=== PATIENT | male | born 1970 | race Caucasian/White ===

== ENCOUNTER 2016-08-01 02:28 | Observation (INO) | payer SELFPAY ==
--- NOTE | ~2016-08-01 | DS ---
Discharge Summary [facility] [address] [place]. [address] NAME: LEVAR SEAY EVER : 74 STATUS : DIS Lauren PAT#: [id number] AGE: 45 ADM/REG DATE : 08/01/16 MR#: [id number] REPORT SERV DATE: 08/04/16 DICTATED BY: TONY RAMEY DATE: 08/03/16 REPORT STATUS : Draft TRANSCRIBED BY: MODL DATE: 08/03/16 ADMISSION DATE: 08/01/2016 DISCHARGE DATE: 08/03/2016 DISCHARGE DIAGNOSES: 1. Acute Clostridium difficile colitis. 2. Tobacco abuse. CONSULTANTS DURING THIS HOSPITALIZATION: None. INVASIVE PROCEDURES DONE DURING THIS HOSPITALIZATION: None. IMAGING DONE DURING THIS HOSPITALIZATION: CT of the abdomen and pelvis with IV contrast showing diffuse colitis consistent with history of C difficile. BRIEF HISTORY OF PRESENT ILLNESS: The patient is a 45-year-old white male, presented to [facility] with significant diarrhea and abdominal pain with an elevated white count. So, he was admitted. For detailed history and physical exam, please see note dictated by Dr. Christian Márqeuz on 08/01/2016. HOSPITAL COURSE: After being admitted to the hospital, this patient was given IV fluids. A CT of the abdomen and pelvis was obtained. We did get records from [facility], where he had had significant diarrhea and his stool studies were positive for C difficile. At that time, immediately Levaquin was discontinued. We continued the Flagyl and he was given oral vancomycin within 24-48 hours of starting the oral vancomycin. This patient's symptoms abated. His diarrhea significantly improved. His white count has come down to normal levels and he feels well enough that he wants to go home and recover in the home setting. DISCHARGE DISPOSITION: Home. DISCHARGE ACTIVITY: As tolerated. DISCHARGE DIET: GI soft diet. DISCHARGE MEDICATIONS: Vancomycin 125 mg four times daily to finish a total of 14-day course. This patient was also counseled on smoking cessation during this hospitalization. DISCHARGE FOLLOWUP: The patient was advised to follow up with the primary care physician. More than 30 minutes spent planning this patient's discharge, reconciling medications, writing prescriptions, discussing hospital care, and followup with the patient and documenting this discharge. SV/MODL Discharge Summary [facility] [address] [place]. [address] NAME: LEVAR SEAY : 74 STATUS : DIS Lauren PAT#: [id number] AGE: 45 ADM/REG DATE : 08/01/16 MR#: [id number] REPORT SERV DATE: 08/04/16 DICTATED BY: TONY RAMEY DATE: 08/03/16 REPORT STATUS : Draft TRANSCRIBED BY: RONALDO DATE: 08/03/16 Tony Ramey M.D. / [id number] CC: Tony Ramey M.D.
--- NOTE | ~2016-08-01 | HP ---
History And Physical [facility] [address] [place]. [address] NAME: LEVAR SEAY : 74 STATUS : ADM IN [facility]#: [id number] AGE: 45 ADM/REG DATE : 08/01/16 MR#: [id number] REPORT SERV DATE: 08/01/16 DICTATED BY: CLAUDIA HENRY DATE: 08/01/16 REPORT STATUS : Draft TRANSCRIBED BY: MODWilber DATE: 08/01/16 DATE OF ADMISSION: 08/01/2016 CHIEF COMPLAINT: A 45-year-old male with no primary care physician, now presenting with abdominal pain and fever. HISTORY OF PRESENT ILLNESS: History was obtained through an interview with the patient, mother, and girlfriend. For about four to five days, the patient has been having increasing abdominal pain and fevers. He has measured fevers up to 103.0 and 104.4. He describes mid abdominal discomfort, often radiating to the right and left lower quadrants of cramping quality that comes in waves, 9.5 out of 10 severity at its worse. The family describes them as being "all over in the position." He has had nausea and vomiting. He describes the last weekend just lying in bed all weekend trying to recuperate. No shortness of breath. No chest pain. No cough. No headache. REVIEW OF SYSTEMS: Otherwise, a 14-point review of systems was obtained and was negative. PAST MEDICAL HISTORY: Denies. PAST SURGICAL HISTORY: Denies. SOCIAL HISTORY: Smokes about 1-1/2 packs per day. No alcohol use. Lives in [place], [place]. Has a girlfriend. He has grown children and grandchildren. He works "building houses." FAMILY HISTORY: Diabetes, hypertension, and heart disease. CURRENT MEDICATIONS: Endocet 10/325 every 8 hours as needed. PHYSICAL EXAMINATION: VITAL SIGNS: Temperature 100.0, pulse 84, blood pressure 126/69, respiratory rate 18, and O2 saturation 98% on room air. GENERAL: A pleasant cooperative male. He is in actually no distress at the time of my interview. HEENT: Pupils equal, round, and reactive to light. No conjunctival pallor. No scleral icterus. Nares are patent. Oropharynx is clear of obstruction. Moist mucous membranes. NECK: Trachea midline. No thyromegaly. LYMPH: No cervical lymphadenopathy. No supraclavicular lymphadenopathy. RESPIRATORY: Clear to auscultation at bases. No wheezes, rales, or rhonchi. Normal History And Physical [address] [place] [facility] [place] [address] NAME: LEVAR SEAY : 74 STATUS : ADM IN PAT#: [id number] AGE: 45 ADM/REG DATE : 08/01/16 MR#: [id number] REPORT SERV DATE: 08/01/16 DICTATED BY: CLAUDIA HENRY DATE: 08/01/16 REPORT STATUS : Draft TRANSCRIBED BY: RONALDO DATE: 08/01/16 respiratory effort. CARDIOVASCULAR: Regular rate and rhythm. No murmurs, rubs, or gallops. No extremity edema is appreciated. ABDOMEN: Minimally tender by my exam at this time. There is no guarding, no rebound. Nondistended. No hepatosplenomegaly. DERMATOLOGICAL: Warm and dry extremities. No pallor. No cyanosis. PSYCHIATRIC: Normal affect. Good mood. Alert and oriented x3. LABORATORY DATA: White blood cell count 27.8, hemoglobin 14, hematocrit 42, and platelets 235. Sodium 137, potassium 3.6, chloride 99, bicarb 30, BUN 6, creatinine 0.2, glucose 119. Urinalysis negative for infection. Liver enzymes within normal limits. STUDIES: CT scan of the abdomen is pending at the time of dictation. ASSESSMENT AND PLAN: 1. Abdominal pain evaluation with high fevers. We will obtain a p.o. and IV contrasted CT scan of the abdomen and pelvis but currently the abdominal exam is quite benign. 2. Systemic inflammatory response syndrome with extremely elevated white blood count of 27.8 and fever reported at 104.4. Blood cultures are pending from [facility]. The patient is started on empiric IV Levaquin and Flagyl until able to rule out significant intraabdominal process by CT scan. KPL/MODL Claudia Henry M.D. / [id number] CC: Tony Ramey M.D.
[2016-08-01] MEDS ORDERED: ENDOCET1 TA3 PO (02:36)
[2016-08-01 04:24] LABS: HEMATOCRIT 39.2 % (40.0-51.0); HEMOGLOBIN 13.8 g/dL (13.6-17.8); MEAN CORPUS HGB CONC 35.2 g/dL (32.0-36.0); MEAN CORPUSCULAR HEMOGLOB 31.6 pg (26.0-34.0); MEAN CORPUSCULAR VOLUME 89.7 fL (80-100); MEAN PLATELET VOLUME 10.6 fL (9.2-13.0); PLATELET COUNT 202 10/3/uL (150-400); RBC DISTRIBUTION WIDTH 12.4 % (12.0-16.0); RED CELL COUNT 4.37 10/6/uL (4.7-6.1)
[2016-08-01 04:29] LABS: WHITE BLOOD CELLS 25.1 10/3/uL (4.5-10.5)
[2016-08-01 04:31] LABS: MANUAL DIFF YES %
[2016-08-01 04:47] LABS: INTERNATIONAL NORMAL RATI 1.4 UNITS (-); PROTIME (NOT ORD) 16.7 SEC (12.0-14.5)
[2016-08-01 04:48] LABS: A/G RATIO 0.9 (0.7-1.9); ALBUMIN 2.6 G/DL (3.5-5.0); ALKALINE PHOSPHATASE 83 U/L (45-117); BUN (BLOOD UREA NITROGEN) 8 MG/DL (6-23); CALCIUM, SERUM 7.9 MG/DL (8.5-10.4); CHLORIDE, SERUM 108 MMOL/L (96-112); CO2 (CARBON DIOXIDE) 24 MMOL/L (24-34); CREATININE 0.88 MG/DL (0.70-1.30); GFR AFRICAN AMERICAN 122 ML/MIN (>=60); GFR NON AFRICAN AMERICAN 105 ML/MIN (>=60); GLUCOSE, SERUM 129 MG/DL (60-99); PARTIAL THROMBO TIME 31.9 SEC (22.5-37.2); POTASSIUM, SERUM 3.4 MMOL/L (3.5-5.3); SGOT(AST) 17 U/L (5-40); SGPT(ALT) 26 U/L (5-65); SODIUM, SERUM 139 MMOL/L (135-148); TOTAL BILIRUBIN 0.6 MG/DL (0-1.2); TOTAL PROTEIN 5.6 G/DL (6.0-8.5); TROPONIN I <0.02 NG/ML (<0.05); ULTRASENSITIVE TSH 0.437 MCIU/ML (0.358-3.740)
[2016-08-01 04:59] LABS: PROCALCITONIN 15.34 ng/mL (<0.5)
[2016-08-01 05:12] LABS: BAND NEUTROPHILS 7 %; IMMATURE GRANS ABSOLUTE (CALC) 0.25 10/3/uL (0.0-0.11); LYMPHOCYTES 11 %; LYMPHOCYTES ABSOLUTE (CALC) 2.01 10/3/uL (0.67-4.30); METAMYELOCYTES 1 %; MONOCYTES 6 %; MONOCYTES ABSOLUTE (CALC) 1.51 10/3/uL (0.21-1.20); NEUTROPHILS ABSOLUTE (CALC) 20.58 10/3/uL (2.02-8.40); SEGMENTED NEUTROPHIL (0) 75 %; TOTAL NUCLEATED CELLS 100
[2016-08-01 05:13] LABS: PLATELET ESTIMATE ADQ (ADEQUATE)
[2016-08-01 05:14] LABS: ATYPICAL LYMPH FEW (3-5%) (0-5%); RBC MORPHOLOGY NORM (NORMAL)
[2016-08-02 11:02] LABS: BASOPHILS 0.2 %; BASOPHILS ABSOLUTE 0.03 10/3/uL (0.0-0.16); EOSINOPHILS ABSOLUTE 0.32 10/3/uL (0.0-0.53); HEMOGLOBIN 14.2 g/dL (13.6-17.8); IMMATURE GRANULOCYTES 1.1 %; IMMATURE GRANULOCYTES ABSOLUTE 0.17 10/3/uL (0.0-0.11); LYMPHOCYTES ABSOLUTE 1.58 10/3/uL (0.67-4.30); MEAN CORPUS HGB CONC 34.6 g/dL (32.0-36.0); MEAN CORPUSCULAR HEMOGLOB 31.5 pg (26.0-34.0); MEAN CORPUSCULAR VOLUME 90.9 fL (80-100); MEAN PLATELET VOLUME 11.2 fL (9.2-13.0); MONOCYTES 12.9 %; MONOCYTES ABSOLUTE 2.03 10/3/uL (0.21-1.20); NEUTROPHILS 73.8 %; NEUTROPHILS ABSOLUTE 11.66 10/3/uL (2.02-8.40); PLATELET COUNT 255 10/3/uL (150-400); RBC DISTRIBUTION WIDTH 12.8 % (12.0-16.0); RED CELL COUNT 4.51 10/6/uL (4.7-6.1); WHITE BLOOD CELLS 15.8 10/3/uL (4.5-10.5)
[2016-08-02 11:03] LABS: MANUAL DIFF NO %
[2016-08-02 11:11] LABS: ALBUMIN 2.4 G/DL (3.5-5.0); BUN (BLOOD UREA NITROGEN) 5 MG/DL (6-23); CALCIUM, SERUM 8.3 MG/DL (8.5-10.4); CHLORIDE, SERUM 108 MMOL/L (96-112); CO2 (CARBON DIOXIDE) 25 MMOL/L (24-34); CREATININE 0.73 MG/DL (0.70-1.30); GFR AFRICAN AMERICAN 132 ML/MIN (>=60); GFR NON AFRICAN AMERICAN 114 ML/MIN (>=60); GLUCOSE, SERUM 118 MG/DL (60-99); PHOSPHORUS, SERUM 2.2 MG/DL (2.5-4.5); POTASSIUM, SERUM 3.7 MMOL/L (3.5-5.3); SODIUM, SERUM 141 MMOL/L (135-148)
[2016-08-03 07:29] LABS: BASOPHILS 0.2 %; BASOPHILS ABSOLUTE 0.03 10/3/uL (0.0-0.16); EOSINOPHILS 4.7 %; EOSINOPHILS ABSOLUTE 0.57 10/3/uL (0.0-0.53); HEMATOCRIT 41.3 % (40.0-51.0); HEMOGLOBIN 14.1 g/dL (13.6-17.8); IMMATURE GRANULOCYTES 1.3 %; IMMATURE GRANULOCYTES ABSOLUTE 0.16 10/3/uL (0.0-0.11); LYMPHOCYTES 24.5 %; LYMPHOCYTES ABSOLUTE 2.95 10/3/uL (0.67-4.30); MEAN CORPUS HGB CONC 34.1 g/dL (32.0-36.0); MEAN CORPUSCULAR HEMOGLOB 31.5 pg (26.0-34.0); MEAN CORPUSCULAR VOLUME 92.2 fL (80-100); MEAN PLATELET VOLUME 10.3 fL (9.2-13.0); MONOCYTES 10.2 %; MONOCYTES ABSOLUTE 1.23 10/3/uL (0.21-1.20); NEUTROPHILS 59.1 %; NEUTROPHILS ABSOLUTE 7.11 10/3/uL (2.02-8.40); PLATELET COUNT 276 10/3/uL (150-400); RBC DISTRIBUTION WIDTH 12.9 % (12.0-16.0); RED CELL COUNT 4.48 10/6/uL (4.7-6.1); WHITE BLOOD CELLS 12.1 10/3/uL (4.5-10.5)
[2016-08-03 07:31] LABS: MANUAL DIFF NO %
[2016-08-03 07:40] LABS: ALBUMIN 2.3 G/DL (3.5-5.0); BUN (BLOOD UREA NITROGEN) 4 MG/DL (6-23); CALCIUM, SERUM 8.1 MG/DL (8.5-10.4); CHLORIDE, SERUM 108 MMOL/L (96-112); CO2 (CARBON DIOXIDE) 28 MMOL/L (24-34); CREATININE 0.93 MG/DL (0.70-1.30); GFR AFRICAN AMERICAN 116 ML/MIN (>=60); GFR NON AFRICAN AMERICAN 100 ML/MIN (>=60); GLUCOSE, SERUM 104 MG/DL (60-99); PHOSPHORUS, SERUM 2.8 MG/DL (2.5-4.5); POTASSIUM, SERUM 3.9 MMOL/L (3.5-5.3); SODIUM, SERUM 144 MMOL/L (135-148)
[2016-08-03] MEDS ORDERED: VANCOCIN HCL125 MG PO (09:44)
[2016-08-03] MEDS ORDERED: FLORASTOR250 MG PO (09:44)
== END 2016-08-03 10:19 | disposition home or self-care (01) ==
LOC: 4SO 02:28
PROVIDERS: Hospitalist; Internal Medicine
DX: A04.7 Enterocolitis due to Clostridium difficile (principal); R65.10 Systemic inflammatory response syndrome (SIRS) of non-infectious origin without acute organ dysfunction; F17.210 Nicotine dependence, cigarettes, uncomplicated; Z79.899 Other long term (current) drug therapy
CPT/HCPCS: 74177; 80053; 80069; 82150; 83605; 83690; 83735; 83880; 84145; 84443; 84484; 85025; 85610; 85730; 96372; 96374; 96375; 96376; A9270-GY; G0378; J1956; J2405; J2550; J2765; Q9967